=== PATIENT | female | born 1975 | race Two or more races ===

== ENCOUNTER 2018-01-30 12:41 | Emergency (ER) | payer OTHER ==
[~2018-01-30] VITALS: Ht 160 cm; Wt 62.1 kg
[2018-01-30] MEDS ORDERED: UNOBMED (12:48)
[2018-01-30 12:54] VITALS: BP 105/78
--- NOTE | 2018-01-30 13:09 | Emergency Room Report ---
History of Present Illness General Chief Complaint: Flu Like Symptoms Source: Patient Present Illness HPI 42-year-old female presents to the emergency department complaining of persistent cough, subjective fevers and chills with raspy voice and5/10 in severity body aches 2 weeks. Patient reports 3 days she's had some erythema in the eye with some discharge noted in the mornings. Patient denies photophobia she reports she does wear contact lenses. Patient denies delusions or bruising. Patient denies headache, chest pain, neck pain or stiffness, nausea or vomiting. Patient states she has not received a flu vaccination this year. 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 She denies recent travel she reports multiple ill contacts. Allergies: Coded Allergies: No Known Allergies (Unverified , 01/30/18) Patient History Past Medical History: see triage record Past Surgical History: none Pertinent Family History: none Last Menstrual Period: 2 weeks ago Now: No Reviewed Nursing Documentation: PMH: Agreed; PSxH: Agreed Nursing Documentation-PMH Past Medical History: No History, Except For Review of Systems All Other Systems: negative except mentioned in HPI Physical Exam Vital Signs Date Time Temp Pulse Resp B/P (MAP) Pulse Ox O2 Delivery O2 Flow Rate FiO2 01/30/18 12:45 99.4 85 18 113/74 98 Room Air 99.3 Sp02 EP Interpretation: reviewed, normal General Appearance: no apparent distress, alert, GCS 15, non-toxic Head: normocephalic, atraumatic Eyes: bilateral eye normal inspection, bilateral eye PERRL, bilateral eye other - bilateral erythema, right eye has some purulent d/c noted, no photophobia. ENT: hearing grossly normal, normal voice Neck: full range of motion, no meningismus, no bony tend Respiratory: chest non-tender, lungs clear, normal breath sounds, no wheezing, speaking full sentences Cardiovascular #1: regular rate, rhythm Gastrointestinal: non tender, soft Musculoskeletal: back normal, gait/station normal, normal range of motion, non- tender Neurologic: alert, oriented x3, responsive, motor strength/tone normal, sensory intact, normal gait, speech normal, grossly normal Psychiatric: judgement/insight normal Skin: normal color, no rash, warm/dry, well hydrated Medical Decision Making PA Attestation Dr. Cardoso is my supervising Physician whom patient management has been discussed with. Diagnostic Impression: Primary Impression: Upper respiratory infection, acute Additional Impression: Conjunctivitis Qualified Codes: H10.31 - Unspecified acute conjunctivitis, right eye ER Course 42-year-old female presents to the emergency department complaining of persistent cough, subjective fevers and chills with raspy voice and5/10 in severity body aches 2 weeks. Patient reports 3 days she's had some erythema in the eye with some discharge noted in the mornings. Patient denies photophobia she reports she does wear contact lenses. Patient denies delusions or bruising. Patient denies headache, chest pain, neck pain or stiffness, nausea or vomiting. Patient states she has not received a flu vaccination this year. 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 She denies recent travel she reports multiple ill contacts. Ddx considered but are not limited to URI, pneumonia, PE, strep pharyngitis, meningitis., conjunctivitis, corneal abrasion just name a few Vital signs: Pt. is afebrile, the remaining VS are WNL H&PE are most consistent with URI and conjunctivitis bacertial vs viral - no meningeal signs, oropharynx is not involved, no evidence of bacterial infection at this time. ORDERS: none required at this time, the diagnosis is clinical ED INTERVENTIONS: None required at this time. --PT. EDUCATION: Discussed antibiotic resistance with inappropriate prescribing of antibiotics for viral illnesses. Discussed signs and symptoms to indicate viral illness versus bacterial illness. DISCHARGE: At this time pt. is stable for d/c to home. Will provide printed patient care instructions, and any necessary prescriptions. Care plan and follow up instructions have been discussed with the patient prior to discharge. Last Vital Signs Date Time Temp Pulse Resp B/P (MAP) Pulse Ox O2 Delivery O2 Flow Rate FiO2 01/30/18 12:45 99.4 85 18 113/74 98 Room Air 99.3 Disposition: HOME, SELF-CARE Condition: Stable Departure Forms: Return to Work Return to Work Date: Feb 01, 2018 Work Restrictions: None Return to Full Activity: Feb 01, 2018 Patient Instructions: Bacterial Conjunctivitis, [id number], Upper Respiratory Infection, Adult, [id number] Additional Instructions: Take medications as directed. Follow up with a Primary Care Provider in 3-5 days, even if your symptoms have resolved. --Please review list of primary care clinics, if you do not already have a primary care provider Return sooner to ED if new symptoms occur, or current symptoms become worse. - Please note that this Emergency Department Report was dictated using [employer] technology software, occasionally this can lead to erroneous entry secondary to interpretation by the dictation equipment. Karmyn Drake Jan 30, 2018 13:09
[2018-01-30] MEDS ORDERED: TESSALON PERLE100 MG ORAL (13:10)
[2018-01-30] MEDS ORDERED: TYLENOL EXTRA500 MG ORAL (13:10)
[2018-01-30] MEDS ORDERED: OCUFLOX5 ML OP (13:10)
[2018-01-30 13:17] VITALS: BP 113/74
== END 2018-01-30 13:17 | disposition home or self-care (01) ==
LOC: EMR 13:10
DX: J06.9 Acute upper respiratory infection, unspecified (principal); H10.9 Unspecified conjunctivitis
CPT/HCPCS: 99282